=== PATIENT | female | born 2000 | race Caucasian/White ===

== ENCOUNTER 2024-02-14 16:37 | Emergency (ER) | payer OTHER ==
[~2024-02-14] VITALS: Ht 162.5 cm; Wt 103.9 kg
[2024-02-14] MEDS ORDERED: Ketorolac Tromethamine 30 MG/ML VIAL IM ONE (17:20)
[2024-02-14] MEDS ORDERED: IBUPROFEN 800 MG TAB PO ONE (19:55)
[2024-02-14] MEDS ORDERED: ZANAFLEX4 MG PO (19:56)
[2024-02-14] MEDS ORDERED: NAPROSYN500 MG PO (19:56)
== END 2024-02-14 20:07 | disposition home or self-care (01) ==
LOC: ED 16:37
DX: S16.1XXA Strain of muscle, fascia and tendon at neck level, initial encounter (principal); S20.212A Contusion of left front wall of thorax, initial encounter; S00.03XA Contusion of scalp, initial encounter; M25.512 Pain in left shoulder; M25.511 Pain in right shoulder; W10.8XXA Fall (on) (from) other stairs and steps, initial encounter; Y93.89 Activity, other specified; Y92.89 Other specified places as the place of occurrence of the external cause; Y99.8 Other external cause status

== ENCOUNTER 2024-03-26 19:43 | Emergency (ER) | payer OTHER ==
[~2024-03-26 19:43] MED LIST: NAPROSYN500 MG PO; ZANAFLEX4 MG PO
[2024-03-26] MEDS ORDERED: Doxycycline Hyclate 100 MG CAP PO ONE (20:10)
[2024-03-26] MEDS ORDERED: VIBRAMYCIN100 MG PO (20:13)
== END 2024-03-26 20:11 | disposition home or self-care (01) ==
LOC: ED 19:43
DX: H66.91 Otitis media, unspecified, right ear (principal); Z88.0 Allergy status to penicillin

== ENCOUNTER → 2024-03-28 | Outpatient (CLI) | payer OTHER ==
[~2024-03-28] MED LIST changes: +VIBRAMYCIN100 MG PO
[2024-03-28 11:25] LABS: HEMATOCRIT 41.1 % (37.0-47.0); MEAN CELL VOLUME 94.5 fl (81.0-99.0); MEAN CORPUSCULAR HGB 30.8 pg (27.0-31.0); MEAN CORPUSCULAR HGB CONC 32.6 g/dl (33.0-37.0); MEAN PLATELET VOLUME 9.8 fl (9.6-12.3); RED BLOOD COUNT 4.35 10*6/uL (4.10-5.10); RED CELL DISTRI WIDTH 11.6 % (0-14.5); WHITE BLOOD COUNT 9.3 10*3/uL (4.8-10.8)
[2024-03-28 11:49] LABS: ALKALINE PHOSPHATASE 93 U/L (46-116); BUN 11 mg/dl (9-23); CHLORIDE 105 mmol/L (98-107); CHOLESTEROL 117 mg/dL (<200); LDL CHOLESTEROL 55 mg/dL (9-159); POTASSIUM 4.1 mmol/L (3.4-5.1); SGPT/ALT 16 U/L (5-49); TOTAL PROTEIN 7.6 gm/dL (6.0-8.0); TRIGLYCERIDES 106 mg/dl (<150)
[2024-03-28 12:07] LABS: VITAMIN D, 25-HYDROXY 26.6 ng/mL (30-100)
== END | disposition home or self-care (01) ==
LOC: LAB 10:56
PROVIDERS: ATTEND Family Medicine
DX: Z01.812 Encounter for preprocedural laboratory examination (principal); R53.83 Other fatigue; E03.9 Hypothyroidism, unspecified

== ENCOUNTER → 2024-04-17 | Outpatient (CLI) | payer OTHER ==
[2024-04-17 13:21] LABS: FREE T4 1.17 ng/dl (0.89-1.76)
== END | disposition home or self-care (01) ==
LOC: LAB 12:22
PROVIDERS: ATTEND Family Medicine
DX: L68.0 Hirsutism (principal); N92.0 Excessive and frequent menstruation with regular cycle; R53.83 Other fatigue

== ENCOUNTER → 2024-04-22 | Outpatient (CLI) | payer OTHER | END | disposition home or self-care (01) | LOC: US 12:27 | PROVIDERS: ATTEND Family Medicine | DX: N91.2 Amenorrhea, unspecified (principal); N92.6 Irregular menstruation, unspecified ==

== ENCOUNTER → 2024-07-29 | Outpatient (CLI) | payer OTHER | END | disposition home or self-care (01) | LOC: LAB 11:12 | PROVIDERS: ATTEND Family Medicine | DX: D64.9 Anemia, unspecified (principal) ==

== ENCOUNTER → 2024-07-31 | Outpatient (CLI) | payer OTHER | END | disposition home or self-care (01) | LOC: LAB 11:46 | PROVIDERS: ATTEND Family Medicine | DX: E28.8 Other ovarian dysfunction (principal) ==

== ENCOUNTER 2024-10-18 14:00 | Emergency (ER) | payer OTHER ==
[~2024-10-18] VITALS: Ht 162.5 cm; Wt 103.4 kg
[2024-10-18] MEDS ORDERED: PRENATAL 19 TA1 EAC2 PO (14:38)
[2024-10-18] MEDS ORDERED: predniSONE 20 MG TAB PO ONE (14:50)
[2024-10-18] MEDS ORDERED: PREDNISONE20 M1 PO (14:51)
== END 2024-10-18 15:10 | disposition home or self-care (01) ==
LOC: ED 14:00
DX: O99.712 Diseases of the skin and subcutaneous tissue complicating pregnancy, second trimester (principal); L25.9 Unspecified contact dermatitis, unspecified cause; Z88.0 Allergy status to penicillin; Z79.899 Other long term (current) drug therapy; Z3A.18 18 weeks gestation of pregnancy